=== PATIENT | male | born 1935 ===

== ENCOUNTER 2017-05-29 17:07 | Emergency (ER) | payer MEDICARE, OTHER ==
--- NOTE | 2017-05-29 17:56 | C.PDOC ---
82 y/o male with history of kidney stones presents to ED with complaints of of left upper throbbing back pain for 4 days around "lung area". Patient reports pain is worse with movement, took Tylenol last given 5pm today. Patient states he has history of same pain and reports last episode 2 years ago, had studies done with negative results. Patient currently denies chest pain, sob, dysuria, nausea, vomiting, leg swelling or any other complaints at this time. (Jael Solo ) History Per: Patient, Family History/Exam Limitations: no limitations Onset/Duration Of Symptoms: Days Current Symptoms Are (Timing): Still Present Quality Of Discomfort: Other (Throbbing) <EdilJael - Last Filed: 05/29/17 18:45> <Precious Bose - Last Filed: 05/29/17 20:52> Time Seen by Provider: 05/29/17 17:43 Chief Complaint (Nursing): Back Pain Past Medical History Reviewed: Historical Data, Nursing Documentation, Vital Signs - Medical History PMH: HTN, Hyperthyroidism Surgical History: Cholecystectomy Family History: States: No Known Family Hx - Social History Hx Alcohol Use: No Hx Substance Use: No - Immunization History Hx Influenza Vaccination: Yes Hx Pneumococcal Vaccination: Yes <Jael Solo - Last Filed: 05/29/17 18:45> Vital Signs: Last Vital Signs Temp 98.2 F 05/29/17 17:27 Pulse 95 H 05/29/17 17:27 Resp 18 05/29/17 17:27 BP 177/108 H 05/29/17 17:27 Pulse Ox 96 05/29/17 18:47 Review Of Systems Constitutional: Negative for: Fever, Chills Cardiovascular: Negative for: Chest Pain Respiratory: Negative for: Cough, Shortness of Breath Gastrointestinal: Negative for: Nausea, Vomiting Musculoskeletal: Positive for: Back Pain Skin: Negative for: Rash Neurological: Negative for: Weakness, Numbness <Jael Solo - Last Filed: 05/29/17 18:45> Physical Exam - Physical Exam Appears: Non-toxic, No Acute Distress Skin: Warm, Dry, No Rash Head: Atraumatic, Normacephalic Oral Mucosa: Moist Neck: Normal ROM, Supple Cardiovascular: Rhythm Regular Respiratory: Normal Breath Sounds, No Rales, No Rhonchi, No Wheezing Gastrointestinal/Abdominal: Soft, No Tenderness, No Guarding, No Rebound Back: No CVA Tenderness, No Paraspinal Tenderness Extremity: Normal ROM, Capillary Refill (<2 seconds) Neurological/Psych: Oriented x3, Normal Speech, Normal Cognition, Normal Motor, Normal Sensation Gait: Steady <Jael Solo - Last Filed: 05/29/17 18:45> ED Course And Treatment - Laboratory Results Result Diagrams: 05/29/17 18:24 05/29/17 18:24 O2 Sat by Pulse Oximetry: 96 (RA) Pulse Ox Interpretation: Normal <Jael Solo - Last Filed: 05/29/17 18:45> - Laboratory Results Result Diagrams: 05/29/17 18:24 05/29/17 18:24 ECG: Interpreted By Me, Viewed By Me ECG Rhythm: Atrial Fibrillation, Nonspecific Changes Pulse Ox Interpretation: Normal <Precious Bose - Last Filed: 05/29/17 20:52> Disposition - Disposition Disposition Time: 19:00 <Jael Solo - Last Filed: 05/29/17 18:45> Counseled Patient/Family Regarding: Studies Performed, Diagnosis, Need For Followup, Rx Given <JuiceAdelawest - Last Filed: 05/29/17 20:52> - Disposition Referrals: Lew Cason MD [Staff Provider] - Disposition: HOME/ ROUTINE Condition: FAIR Additional Instructions: Please return if symptoms recur Prescriptions: Tamsulosin [Flomax] 0.4 mg PO DAILY #15 cap traMADol [Ultram] 25 mg PO QID PRN #20 tab PRN Reason: Pain, Severe (8-10) Forms: [facility] (Swedish) - Clinical Impression Clinical Impression: Back pain, Hematuria, Renal colic - Scribe Statement The provider has reviewed the documentation as recorded by the Scribe <Jael Solo - Last Filed: 05/29/17 18:45> <Precious Bose - Last Filed: 05/29/17 20:52> - Scribe Statement Tania Mckeon All medical record entries made by the Scribe were at my direction and personally dictated by me. I have reviewed the chart and agree that the record accurately reflects my personal performance of the history, physical exam, medical decision making, and the department course for this patient. I have also personally directed, reviewed, and agree with the discharge instructions and disposition. (Jael Solo) Physician Patient Turnover Patient Signed Over To: Precious Bose Handoff Comments: KALI HARRIS <Jael Solo - Last Filed: 05/29/17 18:45>
[2017-05-29] MEDS ORDERED: Lidocaine 5% Patch TD STA (17:58)
[2017-05-29] MEDS ORDERED: Sodium Chloride 0.9% 0 ML ONE (18:09)
[2017-05-29] MEDS ORDERED: Lidocaine 5% Patch TD ONE (18:09)
[2017-05-29 18:29] LABS: URINE BILIRUBIN NEGATIVE (NEGATIVE); URINE BLOOD 1+ (NEGATIVE); URINE CLARITY Clear (Clear); URINE COLOR Straw (YELLOW); URINE GLUCOSE (UA) NORMAL (Normal); URINE LEUKOCYTE ESTERASE NEG Leu/uL (Negative); URINE PROTEIN NEGATIVE (NEGATIVE); URINE UROBILINOGEN NORMAL mg/dL (0.2-1.0)
[2017-05-29 18:31] LABS: BASO # 0.1 K/uL (0.0-0.2); BASO % 0.8 % (0.0-2.0); EOS # 0.2 K/uL (0.0-0.7); EOS % 2.5 % (0.0-4.0); HEMOGLOBIN 16.8 g/dL (12.0-18.0); LYMPH # 1.6 K/uL (1.0-4.3); MEAN CELL VOLUME 88.6 fL (80.0-94.0); MEAN CORPUSCULAR HGB CONC 33.9 g/dL (33.0-37.0); MONO # 1.2 K/uL (0.0-0.8); MONO % 12.8 % (0.0-10.0); NEUT # 6.5 K/uL (1.8-7.0); NEUT % 66.9 % (50.0-75.0); NRBC % 0.1 % (0.0-2.0); RBC 5.61 Mil/uL (4.40-5.90); WHITE BLOOD COUNT 9.7 K/uL (4.8-10.8)
[2017-05-29 18:41] LABS: BLOOD UREA NITROGEN 19 mg/dL (9-20); CALCIUM 9.4 mg/dl (8.6-10.4); GFR AFRICAN-AMERICAN > 60; GFR NON-AFRICAN AMERICAN > 60
[2017-05-29 21:02] VITALS: BP 152/100; PULSE 91; RESP 20; TEMP 97.8; O2SAT 98
--- NOTE | 2017-05-30 08:45 | CT ---
CT abdomen and pelvis History: Left flank pain. Comparison: None available. Technique: Multiple contiguous axial images were performed through the abdomen and pelvis without intravenous contrast. Subsequently, sagittal and coronal reformatted images were obtained. This CT exam was performed using one or more of the following dose reduction techniques: Automated exposure control, adjustment of the mA and/or kV according to patient size, and/or use of iterative reconstruction technique. Findings: Small airway trapping and micro atelectasis. Subsegmental atelectasis in the right middle lobe. Mild nodularity in the right middle lobe measuring up to 1.2 centimeters. Dilated cardiomegaly. Coronary calcifications. Small hiatal hernia. Liver is preserved. Prior cholecystectomy. Pancreas, spleen, and adrenals are preserved. Multiple bilateral renal cysts; for example, in the right kidney a mid pole cyst measures up to 5 centimeters demonstrating a Hounsfield unit attenuation of 5. For example, a midpole cyst in the left kidney measures up to 7 centimeters demonstrating a Hounsfield unit attenuation of 4 with an associated coarse peripheral calcification at the inferior margin of the cyst measuring up to 1 centimeter. Additional multiple scattered cysts and calcifications throughout the left kidney. More complex lesions in the right kidney; for example, a 1.2 centimeter exophytic hyperdense mass off the upper pole of the right kidney demonstrating a Hounsfield unit attenuation of 53. This is indeterminate and within the range of possible renal cell carcinoma. This requires definitive evaluation if not previously performed with multiphasic CT or MR. additional 4 centimeter exophytic mass off the upper medial aspect of the right kidney with hyperdense peripheral nodularity measuring up to 1 centimeter. Again correlation with multiphasic CT or MR would helpful for further evaluation. Scattered coarse left nonobstructing renal urolithiasis. Diverticulosis. Appendix is preserved. Thickened and or underdistended urinary bladder. Heterogeneous enlarged prostate. Degenerative changes in the spine with osteopenia. Gynecomastia. Atheromatous changes of the normal caliber aorta and branch vessels. Impression: 1. Coarse left renal urolithiasis/nephrolithiasis. Recently passed calculus, renal colic, or infection is not excluded. 2. Underdistention and or mild thickening of the urinary bladder. Clinical correlation. 3. Diverticulosis. 4. Heterogeneous and enlarged prostate with associated calcifications. Clinical correlation. 5. Hyperdense indeterminate right renal lesion as well as an additional right renal cyst with peripheral mural nodularity. Correlation with multiphasic CT or MR is recommended for further evaluation of these lesions if clinically indicated. Additional scattered cysts throughout both kidneys some of which contain coarse nodular calcifications in the left kidney. Additional findings as above. These findings were preliminarily reported at 8:23 p.m. on 05/29/[address] Haylee Leone from [facility].
--- NOTE | 2017-05-30 10:02 | RAD ---
HISTORY: COMPARISON: 04/15/2017. TECHNIQUE: Chest PA and lateral FINDINGS: LINES AND TUBES: None. LUNG AND PLEURA: The lungs are hyperinflated and there is peribronchial thickening with chronic changes in both lungs. HEART AND MEDIASTINUM: There is moderate cardiomegaly. The hilar and mediastinal contours are within normal limits. SKELETAL STRUCTURES: The bony structures are within normal limits for the patient's age. VISUALIZED UPPER ABDOMEN: Normal. OTHER FINDINGS: None. IMPRESSION: No active pulmonary disease. COPD.
--- NOTE | 2017-05-31 07:49 | CARD ---
APPROVED REPORT EKG Measurement Heart [id number] <Conclusion> Atrial fibrillation Possible Inferior infarct, age undetermined Abnormal ECG
== END 2017-05-29 21:02 | disposition home or self-care (01) ==
LOC: C.ER 17:07
DX: M54.9 Dorsalgia, unspecified (principal); R31.9 Hematuria, unspecified; N23 Unspecified renal colic; I10 Essential (primary) hypertension
CPT/HCPCS: 71046; 74176; 80048; 81001; 85025; 85378; 96374; 99283; J1885